=== PATIENT | female | born 1990 | race Caucasian/White ===

== ENCOUNTER → 2017-01-06 | Outpatient (CLI) | payer BC, SELFPAY ==
--- NOTE | 2017-01-06 17:34 | REP ---
OB ULTRASOUND COMPLETE, ANATOMY SCREEN: 01/06/2017. Clinical history: Supervision of . Normal first, second trimester anatomy screen. There is a single intrauterine gestation in variable position. The cervix is 4.9 cm long and closed. There is a posterior grade 0 placenta without previa or abruption. Amniotic fluid volume is visually normal. There appears to be draping of the cord over the neck without a definite nuchal cord. biometry: BPD 4.9 cm = 20 weeks 6 days HC 17.2 cm = 19 weeks 5 days AC 15.4 cm = 20 weeks 4 days FL 3 cm = 19 weeks 3 days HL 3 cm = 19 weeks 5 days Average ultrasound age by today's study 20 weeks. This would give an EDC 05/26/2017. By LMP she is 19 weeks 2 days with EDC 05/31/2017. Estimated weight 329 grams or 11 ounces, is 75th percentile for dating based on LMP. anatomic evaluation shows the heart rate 132 and regular. Cranial vault, lateral ventricles, choroid plexus, thalami, cavum septum pellucidum, midline falx, cerebellum and cisterna magna, profile and facial views, lungs, four-chamber heart view, ventricular outflow tracts, diaphragm, left-sided stomach bubble, three-vessel cord, cord insertion, kidneys and bladder, transverse and longitudinal views of the entire spine and the upper and lower extremities are seen and grossly unremarkable. Impression: 1. Single intrauterine gestation in variable position with a closed 4.9 cm long cervix, posterior grade 0 placenta without previa or abruption and visually normal amniotic fluid volume. The umbilical cord drapes over the neck. I cannot definitely confirm a nuchal cord. 2. Size and dates as described above. Average ultrasound by today's study 20 weeks, by LMP 19 weeks 2 days with estimated weight 75th percentile for LMP. Please see details above. 3. Heart rate 132 and regular. No visible anomalies. The anatomy screen should be considered complete. Signed by Sam Du MD 01/07/2017 08:51 A
== END ==
LOC: M RAD 15:52
PROVIDERS: ATTEND Specialist
DX: Z36 Encounter for antenatal screening of mother (principal)

== ENCOUNTER → 2017-03-01 | Outpatient (CLI) | payer BC ==
[2017-03-01 15:58] LABS: BASO % 0.2 % (0.0-1.0); EOS # 0.1 K/mm3 (0.0-0.50); EOS % 0.7 % (0.0-3.0); LARGE UNSTAINED CELL # 0.1 K/mm3 (0.0-0.4); LARGE UNSTAINED CELL % 0.9 % (0.0-4.0); LYMPH # 1.6 K/mm3 (1.5-6.5); LYMPH % 15.1 % (24.0-44.0); MEAN CORPUSCULAR HEMOGLOBIN 31.5 pg (27.0-33.0); MEAN CORPUSCULAR HGB CONC 33.6 g/dl (32.0-36.5); MEAN CORPUSCULAR VOLUME 93.8 fl (80.0-96.0); MONO # 0.4 K/mm3 (0.0-0.8); MONO % 4.5 % (0.0-5.0); NEUTROPHILS # 7.6 K/mm3 (1.8-7.7); NEUTROPHILS % 78.5 % (36.0-66.0); PLATELET COUNT, AUTOMATED 219 k/mm3 (150-450); RED CELL DISTRIBUTION WIDTH 12.7 % (11.5-14.5); WHITE BLOOD COUNT 9.7 K/mm3 (4.0-10.0)
== END ==
LOC: M LAB 14:25
PROVIDERS: ATTEND Specialist
DX: Z34.02 Encounter for supervision of normal first pregnancy, second trimester (principal)

== ENCOUNTER → 2017-05-03 | Outpatient (REF) | payer BC | LOC: M LAB REF 17:03 | PROVIDERS: ATTEND Advanced Practice Midwife | DX: Z34.83 Encounter for supervision of other normal pregnancy, third trimester (principal) ==

== ENCOUNTER 2017-05-27 02:20 | Inpatient (IN) | payer BC ==
[2017-05-27] VITALS (65 sets, daily range): BP systolic 114–184; BP diastolic 58–95
[2017-05-27] MEDS ORDERED: PENICILLIN G POTASSIUM IV 5 MU in D5W MINI-BAG PLUS 100 ML IV STA (02:49)
[2017-05-27] MEDS ORDERED: LR 1,000 ML IV SCH (02:49)
[2017-05-27] MEDS ORDERED: LACTATED RINGER'S 1000 ML IV STA (02:49)
[2017-05-27 03:06] LABS: MEAN CORPUSCULAR HEMOGLOBIN 30.3 pg (27.0-33.0); MEAN CORPUSCULAR HGB CONC 34.2 g/dl (32.0-36.5); MEAN CORPUSCULAR VOLUME 88.8 fl (80.0-96.0); RED CELL DISTRIBUTION WIDTH 16.3 % (11.5-14.5); WHITE BLOOD COUNT 14.5 K/mm3 (4.0-10.0)
[2017-05-27] MEDS ORDERED: FENTANYL 2MCG/ML ROPIVACAINE 0.2% IN 0.9% NACL 200ML IVBAG As Ordered ONE (03:07)
[2017-05-27 03:28] LABS: ALT/SGPT 95 U/L (12-78); AST/SGOT 69 U/L (15-37); BILIRUBIN,TOTAL 0.5 MG/DL (0.2-1.0); CREATININE FOR GFR 0.73 MG/DL (0.55-1.02); GLOMERULAR FILTRATION RATE > 60.0 (>60); URIC ACID 5.8 MG/DL (2.6-6.0)
[2017-05-27] MEDS ORDERED: OXYTOCIN DRIP 30 UNITS in APPROPRIATE DILUENT 1 EA IV SCH (04:33)
[2017-05-27] MEDS ORDERED: LIDOCAINE 1% MDV INJ 50 ML VIAL INFIL ONE (04:45)
[2017-05-27] MEDS ORDERED: RHOGAM 300 MCG (1500 IU) INJ (J2790) IM SCH (04:45)
[2017-05-27] MEDS ORDERED: DIBUCAINE 1% OINTMENT 30GM TOP PRN (04:45)
[2017-05-27] MEDS ORDERED: OXYTOCIN INJ 10 UNITS/ML VIAL (J2590) IM ONE (04:45)
[2017-05-27] MEDS ORDERED: MEASLES,MUMPS,RUBELLA VACCINE INJ (MMR-II) (90707) SC SCH (04:45)
[2017-05-27] MEDS ORDERED: TYLE325T5 PO (05:41)
[2017-05-27] MEDS ORDERED: PREN1TAB11 PO (05:41)
[2017-05-27] MEDS ORDERED: PENICILLIN G POTASSIUM IV 2.5 MU in D5W 100 ML IV SCH (07:00)
[2017-05-27] MEDS: PRENATAL VITAMINS CHEWABLE TABLET PO SCH (08:45)
[2017-05-27] MEDS: IBUPROFEN 800 MG TAB PO PRN ×2 (09:44→17:12)
[2017-05-27 12:15] LABS: MEAN CORPUSCULAR HEMOGLOBIN 30.6 pg (27.0-33.0); MEAN CORPUSCULAR VOLUME 89.8 fl (80.0-96.0); RED CELL DISTRIBUTION WIDTH 16.3 % (11.5-14.5); WHITE BLOOD COUNT 16.5 K/mm3 (4.0-10.0)
[2017-05-27] MEDS: LR 1,000 ML IV SCH ×4 (12:33→22:17)
[2017-05-27 12:50] LABS: ALT/SGPT 87 U/L (12-78); AST/SGOT 71 U/L (15-37); BILIRUBIN,TOTAL 0.4 MG/DL (0.2-1.0); CREATININE FOR GFR 0.65 MG/DL (0.55-1.02); GLOMERULAR FILTRATION RATE > 60.0 (>60); URIC ACID 5.7 MG/DL (2.6-6.0)
[2017-05-27] MEDS ORDERED: LABETALOL HCL 100 MG/20 ML VIAL IV ONE (13:00)
[2017-05-27] MEDS ORDERED: MAG Sulf (L&D) 4 GM/100 ML 4 GM in APPROPRIATE DILUENT 1 EA IV ONE (13:00)
[2017-05-27] MEDS ORDERED: CALCIUM GLUCONATE 1,000 MG in D5W MINI-BAG PLUS 100 ML IV PRN (13:00)
[2017-05-27] MEDS: MAG Sulf (OBGYN) 20GM/500ML 20,000 MG in APPROPRIATE DILUENT 1 EA IV SCH ×2 (13:28→23:03)
[2017-05-27 18:12] LABS: MEAN CORPUSCULAR HEMOGLOBIN 30.7 pg (27.0-33.0); MEAN CORPUSCULAR HGB CONC 33.9 g/dl (32.0-36.5); MEAN CORPUSCULAR VOLUME 90.5 fl (80.0-96.0); RED CELL DISTRIBUTION WIDTH 16.4 % (11.5-14.5); WHITE BLOOD COUNT 14.9 K/mm3 (4.0-10.0)
[2017-05-27 18:33] LABS: ALBUMIN 1.9 GM/DL (3.2-5.2); ALBUMIN/GLOBULIN RATIO 0.59 (1.00-1.93); ALKALINE PHOSPHATASE 208 U/L (45-117); ALT/SGPT 76 U/L (12-78); ANION GAP 8 MEQ/L (8-16); AST/SGOT 58 U/L (15-37); BILIRUBIN,TOTAL 0.2 MG/DL (0.2-1.0); BLOOD UREA NITROGEN 9 MG/DL (7-18); CARBON DIOXIDE LEVEL 26 MEQ/L (21-32); CHLORIDE LEVEL 106 MEQ/L (98-107); CREATININE FOR GFR 0.66 MG/DL (0.55-1.02); GLOMERULAR FILTRATION RATE > 60.0 (>60); GLUCOSE, FASTING 87 MG/DL (70-105); SODIUM LEVEL 140 MEQ/L (136-145); TOTAL PROTEIN 5.1 GM/DL (6.4-8.2); URIC ACID 5.8 MG/DL (2.6-6.0)
--- NOTE | 2017-05-27 22:17 | HPE ---
DATE OF ADMISSION: 05/27/2017 Falguni is a 26-year-old 2, para 0-0-1-0 at 39-3/7 weeks today with an estimated date of confinement (EDC) of 05/31/2017, based on first trimester ultrasound. She presents to labor and delivery today with report of onset of uncomfortable contractions at approximately 12:40. She does report some scant bloody show. She denies leakage of fluid and the fetus has been active. care was initiated at [facility] in the first trimester. course uncomplicated. OBSTETRICAL HISTORY: August 2016 spontaneous miscarriage. OBSTETRICAL LABORATORIES: Blood type is O positive, antibody screen negative, rubella immune, VDRL nonreactive. Urine culture no growth. Hepatitis B surface antigen negative, HIV negative. Hepatitis C antibody nonreactive. Gonorrhea and chlamydia negative. She did not have genetic serum screening labs drawn. Gestational diabetic screening negative and GBS positive. PAST MEDICAL HISTORY: 1. Asthma. 2. Childhood varicella. SURGERIES: 1. Breast augmentation. 2. Incision and drainage of a Bartholin cyst. FAMILY HISTORY: Diabetes. SOCIAL HISTORY: The patient is . Her is at bedside and supportive. She is a nonsmoker. No alcohol or drug use. Denies history of abuse physical, sexual and emotional and has a positive history for human papillomavirus (HPV). ALLERGIES: No known drug allergies. CURRENT MEDICATIONS: Include a vitamin. OBJECTIVE: Temperature 97.9, pulse 63, blood pressure is elevated at 184/94, 171/94. She is alert and oriented times three. She does appear distressed. She is moaning and crying with her contractions and very tense. heart rate is 125 with moderate variability, positive accelerations, no decelerations observed. Lizzie approximately every 3 minutes. Sterile vaginal exam: 7 cm dilated, 90% effaced, -2 station. Membranes are intact. Abdomen is gravid, cephalic presentation. Estimated weight approximately 8 pounds. ASSESSMENT: Intrauterine at 39-3/7 weeks gestation with heart rate category one, labor. PLAN: Admit the patient to labor and delivery. Out of bed ad moriah. Intravenous (IV) fluid bolus as the patient does desire an epidural. Labs as ordered including a pre-eclamptic profile. I do plan to start antibiotics for group B Streptococcus (GBS) prophylaxis and I anticipate continued labor progress and a spontaneous vaginal delivery.
--- NOTE | 2017-05-27 22:17 | DN ---
DATE OF SERVICE: 05/27/2017 Falguni is a 1, para 1-0-1-1 now, who was admitted to labor and delivery in active labor. She did have spontaneous rupture of membranes for a small amount of meconium-stained fluid at 0249. She progressed to full dilation at 0310, pushed to a normal spontaneous vaginal delivery of a live male infant in occiput anterior (OA) position with restitution to left occiput transverse (LOT) position at 0326. There was no nuchal cord. Shoulders delivered with gentle downward traction and the corpus immediately followed. The male was placed on the maternal abdomen crying and active, very vigorous. His mouth and nares were bulb suctioned. The cord was clamped times two once pulsations ceased and cut by the father of the baby. A spontaneous expulsion of an intact placenta with three-vessel cord by Ayala mechanism was at 0336. Uterine hemostasis achieved with intravenous (IV) Pitocin rapid infusion, Pitocin 10 units intramuscularly (IM) and uterine fundal massage. Estimated blood loss 400 mL. Perineum and vagina inspected. Noted to have a first-degree midline laceration, as well as bilateral labial abrasions. The midline laceration was infiltrated with 1% lidocaine and repaired with 3-0 Rapide in the usual fashion. male weighed 7 pounds 14 ounces, 3568 grams, scores 9 and 10. Mother plans to breastfeed her daughter and the family have named their son Marcos. At the close of delivery, lap counts, needle counts and instrument counts were correct and verified.
[2017-05-28] VITALS (32 sets, daily range): BP systolic 100–161; BP diastolic 59–99
[2017-05-28] MEDS: IBUPROFEN 800 MG TAB PO PRN ×3 (04:32→20:54)
[2017-05-28] MEDS: LR 1,000 ML IV SCH ×4 (05:00→21:00)
[2017-05-28 06:32] LABS: MEAN CORPUSCULAR HGB CONC 34.2 g/dl (32.0-36.5); MEAN CORPUSCULAR VOLUME 90.6 fl (80.0-96.0); RED CELL DISTRIBUTION WIDTH 16.6 % (11.5-14.5)
[2017-05-28 06:46] LABS: ALBUMIN 1.8 GM/DL (3.2-5.2); ALKALINE PHOSPHATASE 175 U/L (45-117); ALT/SGPT 64 U/L (12-78); ANION GAP 9 MEQ/L (8-16); AST/SGOT 45 U/L (15-37); BILIRUBIN,TOTAL 0.2 MG/DL (0.2-1.0); BLOOD UREA NITROGEN 8 MG/DL (7-18); CARBON DIOXIDE LEVEL 24 MEQ/L (21-32); CHLORIDE LEVEL 106 MEQ/L (98-107); CREATININE FOR GFR 0.51 MG/DL (0.55-1.02); GLOMERULAR FILTRATION RATE > 60.0 (>60); GLUCOSE, FASTING 78 MG/DL (70-105); SODIUM LEVEL 139 MEQ/L (136-145); TOTAL PROTEIN 5.4 GM/DL (6.4-8.2); URIC ACID 5.5 MG/DL (2.6-6.0)
[2017-05-28] MEDS: ACETAMINOPHEN 500 MG TAB PO PRN ×2 (07:53→20:58)
[2017-05-28] MEDS: PRENATAL VITAMINS CHEWABLE TABLET PO SCH (08:23)
[2017-05-28] MEDS: MAG Sulf (OBGYN) 20GM/500ML 20,000 MG in APPROPRIATE DILUENT 1 EA IV SCH ×2 (08:32→18:59)
[2017-05-28] MEDS: DOCUSATE SODIUM 100 MG CAP PO PRN ×2 (10:44→21:02)
[2017-05-28 11:58] LABS: MEAN CORPUSCULAR HEMOGLOBIN 30.9 pg (27.0-33.0); MEAN CORPUSCULAR HGB CONC 34.3 g/dl (32.0-36.5); MEAN CORPUSCULAR VOLUME 90.1 fl (80.0-96.0); RED CELL DISTRIBUTION WIDTH 16.8 % (11.5-14.5); WHITE BLOOD COUNT 12.9 K/mm3 (4.0-10.0)
[2017-05-28 12:28] LABS: ALBUMIN 1.8 GM/DL (3.2-5.2); ALBUMIN/GLOBULIN RATIO 0.56 (1.00-1.93); ALKALINE PHOSPHATASE 182 U/L (45-117); ALT/SGPT 64 U/L (12-78); ANION GAP 10 MEQ/L (8-16); AST/SGOT 45 U/L (15-37); BILIRUBIN,TOTAL 0.1 MG/DL (0.2-1.0); BLOOD UREA NITROGEN 8 MG/DL (7-18); CALCIUM LEVEL 6.8 MG/DL (8.5-10.1); CARBON DIOXIDE LEVEL 24 MEQ/L (21-32); CHLORIDE LEVEL 104 MEQ/L (98-107); CREATININE FOR GFR 0.49 MG/DL (0.55-1.02); GLOMERULAR FILTRATION RATE > 60.0 (>60); GLUCOSE, FASTING 84 MG/DL (70-105); SODIUM LEVEL 138 MEQ/L (136-145); URIC ACID 5.4 MG/DL (2.6-6.0)
[2017-05-28] MEDS: FAMOTIDINE 20 MG TAB PO SCH (20:59)
[2017-05-29] VITALS (8 sets, daily range): BP systolic 130–164; BP diastolic 75–102
[2017-05-29] MEDS: LR 1,000 ML IV SCH ×4 (00:43→19:38)
[2017-05-29] MEDS: MAG Sulf (OBGYN) 20GM/500ML 20,000 MG in APPROPRIATE DILUENT 1 EA IV SCH ×3 (00:43→19:38)
[2017-05-29] MEDS: IBUPROFEN 800 MG TAB PO PRN ×2 (05:40→17:23)
[2017-05-29] MEDS: PRENATAL VITAMINS CHEWABLE TABLET PO SCH (07:39)
[2017-05-29] MEDS: FAMOTIDINE 20 MG TAB PO SCH ×2 (09:00→20:09)
[2017-05-29] MEDS: NIFEdipine 30 MG XL TAB PO SCH (11:06)
[2017-05-29] MEDS: DOCUSATE SODIUM 100 MG CAP PO PRN (20:09)
[2017-05-30] MEDS: ACETAMINOPHEN 500 MG TAB PO PRN (01:39)
[2017-05-30 01:40] VITALS: BP 149/97
[2017-05-30] MEDS: IBUPROFEN 800 MG TAB PO PRN ×2 (01:40→09:57)
[2017-05-30 06:06] VITALS: BP 130/78
[2017-05-30 06:53] LABS: MEAN CORPUSCULAR HEMOGLOBIN 30.6 pg (27.0-33.0); MEAN CORPUSCULAR HGB CONC 32.8 g/dl (32.0-36.5); MEAN CORPUSCULAR VOLUME 93.3 fl (80.0-96.0); RED CELL DISTRIBUTION WIDTH 16.7 % (11.5-14.5); WHITE BLOOD COUNT 10.8 K/mm3 (4.0-10.0)
[2017-05-30 07:12] LABS: ALBUMIN 2.1 GM/DL (3.2-5.2); ALBUMIN/GLOBULIN RATIO 0.62 (1.00-1.93); ALKALINE PHOSPHATASE 188 U/L (45-117); ALT/SGPT 62 U/L (12-78); ANION GAP 9 MEQ/L (8-16); AST/SGOT 47 U/L (15-37); BILIRUBIN,TOTAL 0.2 MG/DL (0.2-1.0); BLOOD UREA NITROGEN 9 MG/DL (7-18); CALCIUM LEVEL 8.4 MG/DL (8.5-10.1); CARBON DIOXIDE LEVEL 24 MEQ/L (21-32); CHLORIDE LEVEL 102 MEQ/L (98-107); CREATININE FOR GFR 0.55 MG/DL (0.55-1.02); GLOMERULAR FILTRATION RATE > 60.0 (>60); GLUCOSE, FASTING 78 MG/DL (70-105); POTASSIUM SERUM 4.3 MEQ/L (3.5-5.1); SODIUM LEVEL 135 MEQ/L (136-145); TOTAL PROTEIN 5.5 GM/DL (6.4-8.2); URIC ACID 4.7 MG/DL (2.6-6.0)
[2017-05-30] MEDS ORDERED: NIFE30TA66 PO (07:31)
[2017-05-30] MEDS ORDERED: TYLE325T5 PO (07:49)
[2017-05-30] MEDS ORDERED: MOTR200T44 PO (07:49)
[2017-05-30] MEDS: PRENATAL VITAMINS CHEWABLE TABLET PO SCH (08:00)
[2017-05-30 08:01] VITALS: BP 130/78
[2017-05-30] MEDS: NIFEdipine 30 MG XL TAB PO SCH (08:01)
[2017-05-30] MEDS: FAMOTIDINE 20 MG TAB PO SCH (08:01)
[2017-05-30 10:11] VITALS: BP 140/91
== END 2017-05-30 10:45 | disposition home or self-care (01) | DRG 560 ==
LOC: M LDO 02:20 → M LDI 02:33 → M OBS 05-28 17:48
PROVIDERS: ADMIT Advanced Practice Midwife; ATTEND Advanced Practice Midwife
PROC: 10E0XZZ Delivery of Products of Conception, External Approach (ICD-10-PCS; principal; 2017-05-27)
PROC: 0HQ9XZZ Repair Perineum Skin, External Approach (ICD-10-PCS; 2017-05-27)
DX: O14.24 HELLP syndrome, complicating childbirth (principal); O62.3 Precipitate labor; O69.82X0 Labor and delivery complicated by other cord entanglement, without compression, not applicable or unspecified; O70.0 First degree perineal laceration during delivery; Z37.0 Single live birth; Z3A.38 38 weeks gestation of pregnancy

== ENCOUNTER → 2018-03-03 | Outpatient (REF) | payer BC | LOC: M LAB REF 17:11 | DX: Z12.4 Encounter for screening for malignant neoplasm of cervix (principal) | CPT/HCPCS: G0123 ==

== ENCOUNTER → 2018-08-31 | Outpatient (CLI) | payer BC ==
[2018-08-31 17:22] LABS: BASO % 0.3 % (0.0-1.0); EOS # 0.1 10^3/uL (0.0-0.50); EOS % 1.6 % (0.0-3.0); HEMATOCRIT 36.8 % (36.0-47.0); HEMOGLOBIN 12.6 g/dl (12.0-15.5); IMMATURE GRANULOCYTE % 0.3 % (0-3.0); LYMPH % 26.6 % (24.0-44.0); MEAN CORPUSCULAR HEMOGLOBIN 30.9 pg (27.0-33.0); MEAN CORPUSCULAR HGB CONC 34.2 g/dl (32.0-36.5); MEAN CORPUSCULAR VOLUME 90.2 fl (80.0-96.0); MONO # 0.5 10^3/uL (0.0-0.8); MONO % 6.8 % (0.0-5.0); NEUTROPHILS # 4.9 10^3/uL (1.8-7.7); NEUTROPHILS % 64.4 % (36.0-66.0); PLATELET COUNT, AUTOMATED 271 10^3/uL (150-450); RED BLOOD COUNT 4.08 10^6/uL (4.00-5.40); RED CELL DISTRIBUTION WIDTH 12.1 % (11.5-14.5); WHITE BLOOD COUNT 7.6 10^3/uL (4.0-10.0)
[2018-08-31 19:17] LABS: CHLAMYDIA DNA AMPLIFICATION NEGATIVE (NEGATIVE); GC DNA AMPLIFICATION NEGATIVE (NEGATIVE)
[2018-09-01 11:45] LABS: HBsAg Prenatal NEGATIVE (NEGATIVE); HIV 1&2 SCREEN CENTAUR NEGATIVE (NEGATIVE); RUBELLA IgG QUALITATIVE IMMUNE (IMMUNE)
[2018-09-01 11:45] LABS: HEPATITIS C VIRUS ABY INDEX < 0.0 INDEX (<0.8)
== END ==
LOC: M LAB 16:12
DX: Z34.81 Encounter for supervision of other normal pregnancy, first trimester (principal); Z3A.00 Weeks of gestation of pregnancy not specified
CPT/HCPCS: 86762

== ENCOUNTER → 2018-10-30 | Outpatient (CLI) | payer BC ==
[~2018-10-30] MED LIST: MOTR200T44 PO; NIFE30TA50 PO; PREN1TAB11 PO; TYLE325T5 PO
--- NOTE | 2018-10-31 04:12 | REP ---
Clinical: Anatomical evaluation. Comparison: None. Findings: Examination demonstrates a single live intrauterine in cephalic presentation. motion is identified by technologist. Placenta is noted anterior and grade zero without evidence for placenta previa or abruption. Amniotic fluid volume is normal. Cervix measures 4.1 cm in length and appears closed. No evidence for nuchal cord. Gestational age by LMP 17 weeks 4-day with FRANKLIN 04/05/2019 . Gestational age by current measurements 18 weeks 3 days with FRANKLIN 03/30/2019 . FHR equals 139 beats per minute. BPD 4.1 cm 18 weeks 3 days HC 15.4 cm 18 weeks 3 days AC 12.8 cm 18 weeks 3-day FL 2.7 cm 18 weeks 2 days HL 2.7 cm 18 weeks 3 day HC/AC ratio 1.21 Estimated weight 236 grams ( 77th percentile). Anatomical assessment demonstrates normal structures including cranium, cavum, cerebellum/posterior fossa, facial features, lungs, four-chamber heart/ventricular outflow tracts, diaphragm, stomach, cord insertion/three-vessel cord, bladder, spine, and extremities. Small bilateral choroid plexus cysts are identified. Mild bilateral renal pelviectasis within normal range. Impression: Single live intrauterine in cephalic presentation demonstrating appropriate interval growth. Anatomical findings as described above may warrant followup and evaluation. Electronically Signed by Robin Norwood MD 10/31/2018 04:03 A
== END ==
LOC: M RAD 17:06
PROVIDERS: ATTEND Specialist
DX: Z36.89 Encounter for other specified antenatal screening (principal); Z3A.18 18 weeks gestation of pregnancy

== ENCOUNTER → 2019-01-06 | Outpatient (CLI) | payer BC ==
[2019-01-06 18:34] LABS: BASO % 0.2 % (0.0-1.0); EOS # 0.1 10^3/uL (0.0-0.50); EOS % 0.9 % (0.0-3.0); HEMATOCRIT 35.3 % (36.0-47.0); HEMOGLOBIN 11.7 g/dl (12.0-15.5); LYMPH # 1.4 10^3/uL (1.5-4.5); LYMPH % 16.4 % (24.0-44.0); MEAN CORPUSCULAR HGB CONC 33.1 g/dl (32.0-36.5); MEAN CORPUSCULAR VOLUME 93.4 fl (80.0-96.0); MONO # 0.5 10^3/uL (0.0-0.8); MONO % 5.7 % (0.0-5.0); NEUTROPHILS # 6.5 10^3/uL (1.8-7.7); NEUTROPHILS % 75.5 % (36.0-66.0); PLATELET COUNT, AUTOMATED 253 10^3/uL (150-450); RED BLOOD COUNT 3.78 10^6/uL (4.00-5.40); WHITE BLOOD COUNT 8.6 10^3/uL (4.0-10.0)
== END ==
LOC: M WUC 13:39
PROVIDERS: ATTEND Specialist
DX: Z34.82 Encounter for supervision of other normal pregnancy, second trimester (principal)

== ENCOUNTER → 2019-01-31 | Outpatient (CLI) | payer BC | LOC: M LAB 13:48 | PROVIDERS: ATTEND Advanced Practice Midwife | DX: Z34.82 Encounter for supervision of other normal pregnancy, second trimester (principal) ==

== ENCOUNTER → 2019-03-05 | Outpatient (REF) | payer BC | LOC: M LAB REF 17:27 | PROVIDERS: ATTEND Specialist | DX: Z34.83 Encounter for supervision of other normal pregnancy, third trimester (principal); Z3A.00 Weeks of gestation of pregnancy not specified ==

== ENCOUNTER 2019-04-03 06:23 | Inpatient (IN) | payer BC ==
[2019-04-03] VITALS (25 sets, daily range): BP systolic 79–116; BP diastolic 50–73
[~2019-04-03] VITALS: Ht 174 cm; Wt 81.2 kg
[2019-04-03] MEDS ORDERED: TUMS500C PO (06:47)
[2019-04-03] MEDS ORDERED: LACTATED RINGER'S 1000 ML IV STA (07:12)
[2019-04-03] MEDS ORDERED: LR 1,000 ML IV SCH (07:12)
[2019-04-03] MEDS: LR 1,000 ML IV SCH ×2 (07:40→18:15)
[2019-04-03 08:02] LABS: HEMATOCRIT 35.3 % (36.0-47.0); HEMOGLOBIN 11.6 g/dl (12.0-15.5); MEAN CORPUSCULAR HEMOGLOBIN 29.4 pg (27.0-33.0); MEAN CORPUSCULAR HGB CONC 32.9 g/dl (32.0-36.5); MEAN CORPUSCULAR VOLUME 89.6 fl (80.0-96.0); PLATELET COUNT, AUTOMATED 217 10^3/uL (150-450); RED BLOOD COUNT 3.94 10^6/uL (4.00-5.40); WHITE BLOOD COUNT 9.2 10^3/uL (4.0-10.0)
--- NOTE | 2019-04-03 08:33 | NUR ---
L&D H&P HPI: 28 year old at 39+5 weeks estimated gestation. Expected date of confinement: 04/05/2019. dated by her LMP, which was consistent with a first trimester ultrasound. Presents today with frequent painful contractions for the past several hours. Denies vaginal bleeding, loss of fluid. Reports regular movement. course uncomplicated thus far. Her past was complicated by HELLP syndrome. labs: Blood type O+, antibody screen negative, rubella immune, VDRL nonreactive , hepatitis B surface antigen negative, HIV negative, hepatitis C antibody negative, GC/CT negative, aneuploidy/maternal serum screening: Patient did not do screening, 1 hour glucose challenge test: 90, GBS negative Vaccinations: Tdap. 02/01/2019 Radiology/OB US: no anomalies or placental abnormalities detected. History Past medical history: none Surgical history: Excision of Bartholin's cyst/marsupialization, breast augmentation Medications: vitamins Allergies: NKDA BILINGUAL TEACHER history: Remote history of HPV/dysplasia. No other STI OB history: G1, August 2016 SAB. G2, May 2017, 39+3 , 7 lbs. 14 oz. complicated by HELLP syndrome. 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 No tobacco, alcohol or drug use. Family history:. Schizophrenia-patient's uncle, father-depression. Ulcerative colitis. Pt's mother recently diagnosed with idiopathic pancytopenia. Objective Vitals: Normotensive, normal heart rate, afebrile Heart: Regular rate and rhythm. No murmurs, rubs or gallops. Lungs: Clear to auscultation bilaterally. No wheezes, crackles, rales or rhonchi. Abdomen: Uterine fundal height consistent with dates. No guarding or rebound tenderness. Extremities: No clubbing, cyanosis or edema. Normal deep tendon reflexes. Sterile vaginal exam: 3 cm, 80 %effacement, -3 station, cephalic, intact (checked around 0700 this AM) External monitoring: heart rate category 1 Tocodynamometer: contractions occurring every 2-4 minutes Assessment/Plan 28 year old at 39+5 weeks gestation. Diagnosis: Active labor at term. Reassuring and maternal status. -Admit to labor and delivery with routine labs and orders -External monitoring and tocodynamometer -Pediatrics and anesthesia consultations as needed. -Augment labor with Pitocin as needed Dr. Chad Perez, DO, FACOG
--- NOTE | 2019-04-03 09:29 | NUR ---
Progress Note Pt continuing to contract uncomfortably. Pain with each contraction. No VB/LOF. VSS,normotensive, afebrile SVE: 5cm/90%/-3, posterior, intact EFM: Cat I [place]: ctxs every 2-4 min A/P: Early active labor. Reassuring maternal and status. Considering epidural. -Repeat SVE in 2-4 hours or sooner PRN. Debra Perez DO
[2019-04-03] MEDS ORDERED: FENTANYL 2MCG/ML ROPIVACAINE 0.2% IN 0.9% NACL 100ML IVBAG As Ordered ONE (09:34)
[2019-04-03] MEDS ORDERED: LACTATED RINGER'S 1000 ML IV PRN (10:30)
[2019-04-03] MEDS ORDERED: diphenhydrAMINE INJ 50MG/ML VIAL (J1200) IV PRN (10:30)
[2019-04-03] MEDS ORDERED: EPIDURAL COMMENT XX SCH (10:30)
[2019-04-03] MEDS ORDERED: FENTANYL/ROPIVACAINE/NACL BAG 100 ML EPIDURAL SCH (10:30)
[2019-04-03] MEDS ORDERED: REFRIGERATOR IV KEYS XX PRN (10:30)
[2019-04-03] MEDS ORDERED: ePHEDrine SULFATE 25 MG/5 ML(5MG/ML) SYRINGE IV PRN (10:30)
[2019-04-03] MEDS ORDERED: ONDANSETRON 4MG/2ML VIAL (J2405) IV PRN ×2 (10:30→15:00)
[2019-04-03] MEDS ORDERED: NALOXONE INJ 0.4 MG/1 ML VIAL (J2310) IV PRN (10:30)
[2019-04-03] MEDS ORDERED: EPIDURAL/PCA KEYS XX PRN (10:30)
--- NOTE | 2019-04-03 13:07 | NUR ---
Progress Note Comfortable with epidural. No heavy VB or LOF. VSS,normotensive, afebrile SVE: 5cm/100%/-3, anterior, bloody show AROM, clear EFM: Cat I [place]: ctxs every 2-4 min A/P: Active labor. Reassuring maternal and status. -Repeat SVE in 2 hours or sooner PRN. Debra Perez DO
[2019-04-03] MEDS ORDERED: OXYTOCIN 30 UNITS IN 0.9% NaCl 500ML IV BAG (J2590) As Ordered ONE (14:32)
[2019-04-03] MEDS ORDERED: OXYTOCIN DRIP 30 UNITS in APPROPRIATE DILUENT 1 EA IV SCH (14:54)
--- NOTE | 2019-04-03 14:58 | NUR ---
Delivery note Spontaneous vaginal delivery Estimated gestational age at delivery: 39+5 weeks The active phase and second stage of labor progressed in normal fashion with epidural anesthesia. Patient did not receive Pitocin labor augmentation. Cat I FHR throughout labor. The head delivered left occiput anterior and restituted left occiput transverse. No nuchal cord was noted. The anterior shoulder delivered with gentle downward guidance and the remainder of the body delivered with ease. Cord clamping was delayed for approximately 1 minute after delivery. After doubly clamping the cord, I guided the FOB to cut the cord. The was placed on the patient's chest for immediate bonding. [place] data: Apgars 9 and 9. weight 3900 grams 8 pounds, 10 ounces. Time of delivery: 1432. Sex: Male named Marcelino. The third stage of labor was actively managed with a bolus of IV Pitocin (30 units in 500 mL of normal saline). The placenta delivered completely intact with no missing cotyledons at 1437. A three-vessel cord with a central insertion was noted. After delivery of the placenta, the uterine fundus was approximately 2 cm below the umbilicus and firm. IV Pitocin was continued to maintain uterine tone. A normal, low level of uterine bleeding was noted. The cervix, vagina, vulva and perineum were inspected for lacerations. A first degree laceration was noted. This was repaired with 3-0 Vicryl in typical fashio n. Excellent hemostasis was noted. Estimated blood loss: 200ml. All sponges, needles, and instruments were accounted for per NEWS ANCHOR department protocol. Chad Perez D.O., F.A.C.O.G.
[2019-04-03] MEDS ORDERED: PROMETHAZINE 25 MG TAB PO PRN (15:00)
[2019-04-03] MEDS ORDERED: DOCUSATE SODIUM 100 MG CAP PO PRN (15:00)
[2019-04-03] MEDS ORDERED: ACETAMINOPHEN TAB 650MG DOSE (2X325MG) PO PRN (15:00)
[2019-04-03] MEDS ORDERED: DIBUCAINE 1% OINTMENT 30GM TOP PRN (15:00)
[2019-04-03] MEDS ORDERED: MEASLES,MUMPS,RUBELLA VACCINE INJ (MMR-II) (90707) SC SCH (15:00)
[2019-04-03] MEDS ORDERED: IBUPROFEN 600 MG TAB PO PRN (15:00)
[2019-04-03] MEDS ORDERED: RHOGAM 300 MCG (1500 IU) INJ (J2790) IM SCH (15:00)
[2019-04-03] MEDS ORDERED: METHYLERGONOVINE MALEATE 0.2 MG TAB PO PRN (15:00)
[2019-04-03] MEDS ORDERED: ACETAMINOPHEN 500 MG TAB PO PRN (15:00)
[2019-04-03] MEDS ORDERED: SLF 3 ML SYR IV PRN (18:15)
[2019-04-03] MEDS: IBUPROFEN 800 MG TAB PO PRN (19:47)
[2019-04-03] MEDS: SLF 3 ML SYR IV SCH (20:32)
[2019-04-04] MEDS: IBUPROFEN 800 MG TAB PO PRN ×2 (05:03→13:06)
[2019-04-04] MEDS: SLF 3 ML SYR IV SCH ×2 (05:03→13:07)
[2019-04-04 05:57] VITALS: BP 115/71
[2019-04-04] MEDS ORDERED: PRENATAL VITAMINS CHEWABLE TABLET PO SCH (09:00)
[2019-04-04] MEDS ORDERED: ACET-683 PO (09:41)
[2019-04-04] MEDS ORDERED: IBUP80TA PO (09:41)
== END 2019-04-04 15:40 | disposition home or self-care (01) | DRG 560 ==
LOC: M LDO 06:23 → M LDI 07:12 → M OBS 17:47
PROVIDERS: ADMIT Advanced Practice Midwife; ATTEND Advanced Practice Midwife
PROC: 10E0XZZ Delivery of Products of Conception, External Approach (ICD-10-PCS; principal; 2019-04-03)
PROC: 0HQ9XZZ Repair Perineum Skin, External Approach (ICD-10-PCS; 2019-04-03)
DX: O70.0 First degree perineal laceration during delivery (principal); Z37.0 Single live birth; Z3A.39 39 weeks gestation of pregnancy

== ENCOUNTER → 2020-04-09 | Outpatient (REF) | payer BC ==
[~2020-04-09] MED LIST changes: +ACET-683 PO; +IBUP80TA PO; +TUMS500C PO
[2020-04-09 17:24] LABS: ALBUMIN 3.8 GM/DL (3.2-5.2); ALT/SGPT 20 U/L (12-78); BILIRUBIN,TOTAL 0.4 MG/DL (0.2-1.0); BLOOD UREA NITROGEN 13 MG/DL (7-18); CALCIUM LEVEL 8.7 MG/DL (8.5-10.1); CARBON DIOXIDE LEVEL 29 MEQ/L (21-32); CHLORIDE LEVEL 106 MEQ/L (98-107); CREATININE FOR GFR 0.62 MG/DL (0.55-1.30); FOLATE 22.1 NG/ML (>5.4); GLOMERULAR FILTRATION RATE > 60.0 (>60); GLUCOSE, FASTING 74 MG/DL (70-100); POTASSIUM SERUM 3.9 MEQ/L (3.5-5.1); SODIUM LEVEL 138 MEQ/L (136-145); TOTAL PROTEIN 7.2 GM/DL (6.4-8.2); VITAMIN B12 LEVEL 1003 PG/ML (247-911)
[2020-04-09 17:29] LABS: HEMATOCRIT 39.5 % (36.0-47.0); HEMOGLOBIN 13.4 g/dl (12.0-15.5); MEAN CORPUSCULAR HEMOGLOBIN 31.5 pg (27.0-33.0); MEAN CORPUSCULAR HGB CONC 33.9 g/dl (32.0-36.5); MEAN CORPUSCULAR VOLUME 92.9 fl (80.0-96.0); PLATELET COUNT, AUTOMATED 279 10^3/uL (150-450); RED BLOOD COUNT 4.25 10^6/uL (4.00-5.40); WHITE BLOOD COUNT 6.8 10^3/uL (4.0-10.0)
== END ==
LOC: M SFHCADAM 13:43
PROVIDERS: ATTEND Family Medicine
DX: R53.83 Other fatigue (principal); L65.9 Nonscarring hair loss, unspecified

== ENCOUNTER → 2020-05-01 | Outpatient (CLI) | payer BC ==
--- NOTE | 2020-05-01 14:49 | REP ---
Clinical: Right lower extremity calf pain . Technique: Bourgeois scale and color Doppler evaluation of the right lower extremity using linear high frequency transducer. Findings: Ultrasound examination of the right lower extremity deep venous structures from the common femoral vein to the popliteal vein demonstrates normal compressibility flow and wave patterns in response to respiration and augmentation. There is no evidence for deep venous thrombosis. Impression: No evidence for deep venous thrombosis.
== END ==
LOC: M WHC 12:01
PROVIDERS: ATTEND Family Medicine
DX: M79.661 Pain in right lower leg (principal)

== ENCOUNTER → 2020-06-13 | Outpatient (CLI) | payer BC ==
--- NOTE | 2020-08-04 07:23 | REP ---
PELVIC MRI WITHOUT CONTRAST: HISTORY: Pain in the left hip. This report was delayed due to prolonged network disruptions at this facility. [id number] COMPARISON: None available. TECHNIQUE: Axial, coronal and sagittal imaging planes are utilized. T1 and T2- weighted scans are included with and without fat saturation. FINDINGS: No uterine or significant ovarian lesion is seen. A small quantity of physiologic fluid is seen. The visualized small and large bowel loops are unremarkable. No inguinal or pelvic wall defect is seen. There is no evidence of hip joint effusion. Periarticular soft tissues are unremarkable about the hips. Cortical and medullary bone signal intensity is normal in the proximal femurs bilaterally. There is no evidence of avascular necrosis. There is both T2 hyperintense edema and low T1, low T2-weighted sclerotic change on either side of the left sacroiliac joint consistent with unilateral left- sided sacroiliitis. There is no significant effusion or adjacent fluid collection. The right SI joint is unremarkable. The skeletal muscle shows normal T1 and T2-weighted signal intensity and contour. The pelvic floor structures are unremarkable. No other abnormality. IMPRESSION: Findings consistent with unilateral left-sided sacroiliitis with apparent sclerotic change and marrow edema on either side of the SI joint. MTDD
== END ==
LOC: M RAD 07:35
PROVIDERS: ATTEND Orthopaedic Surgery Sports Medicine
DX: M25.552 Pain in left hip (principal)

== ENCOUNTER → 2020-08-21 | Outpatient (CLI) | payer BC ==
[2020-08-21 14:13] LABS: BASO % 0.3 % (0.0-1.0); EOS # 0.1 10^3/uL (0.0-0.5); HEMATOCRIT 36.8 % (36.0-47.0); HEMOGLOBIN 12.6 g/dl (12.0-15.5); LYMPH # 1.3 10^3/uL (1.5-5.0); LYMPH % 21.9 % (24.0-44.0); MEAN CORPUSCULAR HEMOGLOBIN 31.3 pg (27.0-33.0); MEAN CORPUSCULAR HGB CONC 34.2 g/dl (32.0-36.5); MEAN CORPUSCULAR VOLUME 91.5 fl (80.0-96.0); MONO # 0.5 10^3/uL (0.0-0.8); MONO % 8.8 % (0.0-5.0); NEUTROPHILS # 4.1 10^3/uL (1.5-8.5); NEUTROPHILS % 66.5 % (36.0-66.0); PLATELET COUNT, AUTOMATED 257 10^3/uL (150-450); RED BLOOD COUNT 4.02 10^6/uL (4.00-5.40); WHITE BLOOD COUNT 6.1 10^3/uL (4.0-10.0)
[2020-08-21 15:29] LABS: HEPATITIS C VIRUS ABY INDEX 0.1 INDEX (<0.8); HIV 1&2 SCREEN CENTAUR NEGATIVE (NEGATIVE)
== END ==
LOC: M PLALAB 11:57
PROVIDERS: ATTEND Specialist
DX: O09.521 Supervision of elderly multigravida, first trimester (principal); Z3A.00 Weeks of gestation of pregnancy not specified

== ENCOUNTER → 2020-10-13 | Outpatient (CLI) | payer BC ==
--- NOTE | 2020-10-13 21:08 | REP ---
INDICATION: ANATOMY COMPARISON: None. TECHNIQUE: Transabdominal obstetrical ultrasound with color Doppler evaluation. FINDINGS: Examination demonstrates a single live intrauterine in transverse (head to maternal right) presentation. motion is identified by technologist. Placenta is noted posterior and grade 0 without evidence for placenta previa or abruption. Amniotic fluid volume is normal. Cervix measures 3.7 cm in length and appears closed.. Gestational age by LMP 19 weeks 3 days with FRANKLIN 03/06/2021. Gestational age by current measurements 19 weeks 2 days with FRANKLIN 03/07/2021. FHR equals 142 beats per minute. BPD: 4.4 cm 19 weeks 3 days HC: 16.6 cm 19 weeks 2 days AC: 14.0 cm 19 weeks 3 days FL: 3.0 cm 19 weeks 2 days HL: 2.9 cm 19 weeks 2 days HC/AC: 1.18 Estimated weight 287 grams (43rdpercentile). Anatomical assessment demonstrates normal structures including cranium, choroid plexus, cavum, cerebellum/posterior fossa, diaphragm, stomach, cord insertion/three-vessel cord, kidneys/bladder, spine, and extremities. IMPRESSION: 1. Single live intrauterine in transverse lie demonstrating appropriate interval growth. 2. While no gross abnormalities are identified, limited evaluation of the facial features and heart/ventricular outflow tracts are due to positioning and may warrant re-evaluation. <Electronically signed by Robin Norwood > 10/13/20 [id number]
== END ==
LOC: M WHC 14:13
PROVIDERS: ATTEND Obstetrics & Gynecology
DX: O09.292 Supervision of pregnancy with other poor reproductive or obstetric history, second trimester (principal); Z3A.19 19 weeks gestation of pregnancy; O32.2XX0 Maternal care for transverse and oblique lie, not applicable or unspecified

== ENCOUNTER → 2020-10-24 | Outpatient (CLI) | payer BC ==
--- NOTE | 2020-10-24 12:57 | REP ---
INDICATION: F/U ANATOMY. COMPARISON: On the prior obstetric ultrasound dated 10/13/2020 the facial profile, upper lip, four-chamber view of the heart and the cardiac right left ventricular outflow tracts were suboptimally demonstrated. The study today is for follow up of these anatomic structures. TECHNIQUE: Multiple ultrasonographic images of the fetus. FINDINGS: There is a single intrauterine gestation of position is not recorded by the account director, however, fetus appears to be in a transverse lie upon viewing the images. The placenta is posterior as previously. The since sonography for does not indicate if there is placenta previa, however no preview is identified on the prior study. I did do not identify previa on the images presented. Cervix measures 3.4 cm in length. heart rate is 146 beats per minute. The composite ultrasound gestational age by the study today is 21 weeks 3 days. The FRANKLIN is 03/03/2021. Gestational age by the 1st ultrasound is 21 weeks 0 days with an FRANKLIN of 03/06/2021. Gestational age by LMP is 21 weeks 0 days with an FRANKLIN of 03/06/2021. On the study today the facial profile, upper lip, four-chamber view of the heart and cardiac right left ventricular outflow tracts are satisfactorily demonstrated and are unremarkable. Again identified today and unremarkable of the cranium, cavum septum pellucidum, cardiac rhythm, diaphragm, stomach, abdominal wall, right and left kidneys, bladder, right left upper extremities, right and left lower extremities and 3 vessel cord. Suboptimally demonstrated today are the falx, intracranial ventricles, choroid plexus, cerebellum, cisterna magna in spine. However, the structures were adequately visualized previously and were unremarkable. Therefore, there are no anomalies. IMPRESSION: There are no anomalies as described above. <Electronically signed by Kev Cerda > 10/24/20 [id number]
== END ==
LOC: M WHC 08:40
PROVIDERS: ATTEND Specialist
DX: Z34.82 Encounter for supervision of other normal pregnancy, second trimester (principal); Z3A.21 21 weeks gestation of pregnancy

== ENCOUNTER → 2020-12-04 | Outpatient (REF) | payer BC ==
[2020-12-04 13:48] LABS: HEMOGLOBIN 12.1 g/dl (12.0-15.5); MEAN CORPUSCULAR HGB CONC 32.7 g/dl (32.0-36.5); MEAN CORPUSCULAR VOLUME 94.9 fl (80.0-96.0); PLATELET COUNT, AUTOMATED 232 10^3/uL (150-450); WHITE BLOOD COUNT 8.3 10^3/uL (4.0-10.0)
== END ==
LOC: M PLALAB 08:57
PROVIDERS: ATTEND Specialist
DX: Z34.82 Encounter for supervision of other normal pregnancy, second trimester (principal); Z3A.00 Weeks of gestation of pregnancy not specified

== ENCOUNTER → 2021-02-10 | Outpatient (REF) | payer BC | LOC: M SFHCWAGY 13:27 | PROVIDERS: ATTEND Advanced Practice Midwife | DX: Z36.89 Encounter for other specified antenatal screening (principal); Z3A.36 36 weeks gestation of pregnancy ==

== ENCOUNTER 2021-02-27 23:47 | Inpatient (IN) | payer BC ==
[~2021-02-27] VITALS: Ht 175.3 cm; Wt 82.5 kg
[2021-02-28] VITALS (26 sets, daily range): BP systolic 87–159; BP diastolic 47–118
[2021-02-28] MEDS ORDERED: LACTATED RINGER'S 1000 ML IV STA (00:22)
[2021-02-28] MEDS ORDERED: LIDOCAINE 1% MDV 20ML VIAL INFIL PRN (00:25)
[2021-02-28] MEDS ORDERED: OXYTOCIN DRIP 30 UNITS in IV 1 EA IV PRN (00:25)
[2021-02-28] MEDS ORDERED: LR 1,000 ML IV SCH (00:25)
[2021-02-28] MEDS ORDERED: METHYLERGONOVINE MALEATE 0.2 MG/ML VIAL (J2210) IM PRN (00:25)
--- NOTE | 2021-02-28 00:38 | HPEPDOC ---
Obstetrical History & Physical General Date of Admission 02/28/2021 History of Present Illness Chief Complaint: Contractions, term Age: 30 : 4 Term: 2 Pre-term: 0 Abortions: 1 Livin Care Care: Good Care Dating Final EDC: Mar 07, 2021 Final EDC by: LMP EGA at Admission: 39 Antepartum Course Admission Weight (lbs.): 180.6 Past Medical History Past Obstetrical History #1: Past Obstetrical History: Primgravida (2017) Type of Delivery: Spontaneous Vaginal Del. Sex of : Male (7#14) Complications: No Past Obstetrical History #2: Past Obstetrical History: Multigravida (2018) Type of Delivery: Spontaneous Vaginal Del. Sex of Infant: Male (8#) Complications: No DIRECTOR OF SCIENTIFIC RESEARCH History: Spontaneous , Human papillomavirus(HPV) Past Medical History Surgical History: Breast augmentation, Other (bartholins cyst) Family History Significant Family History: Diabetes Social History Marital Status: Family situation: Spouse/partner home Psychosocial History: No pertinent psych hx * Smoker: former Smoker Alcohol: Denies Drugs: denies Abuse Violence Screening Have you been hit/kicked/slapp: No Have you been sexually assault: No Allergies Coded Allergies: No Known Allergies (Unverified , 05/27/17) Medications Scheduled PRN Acetaminophen (Acetaminophen) 500 Mg Tablet, 1,000 MG PO Q6HP PRN for PAIN SCALE 6-10 Calcium Carbonate (Tums) 200 Mg Tab.chew, 1,000 MG PO Q4HP PRN for HEARTBURN Ibuprofen (Ibuprofen) 800 Mg Tablet, 800 MG PO Q8HP PRN for PAIN SCALE 6-10 Miscellaneous Medications Vit No.124/Iron/Folic ( Vitamin Tablet) 1 Tab Tab, 1 TAB PO Physical Examination Physical Examination GENERAL: Alert and oriented times three. BREAST: . ABDOMEN: Gravid and non-tender to touch. FETUS: Is vertex (VTX) by sterile vaginal examination (SVE), fetus is vertex (VTX) by Lan. EFW 8# HEART RATE: Regular rate and rhythm. LUNGS: Clear to auscultation (CTA). EXTREMITIES: No edema. No clonus. Deep tendon reflexes (DTRs) + 2. Pertinent Laboratoy Data Blood Type: O+ RBC Antibody Screen: Negative HIV: Negative Hepatitis B: Negative Hepatitis C: Negative Rapid Plasma Reagin: Nonreactive Rubella: Immune Chlamydia/Gonorrhea: Negative Group B Streptococcus: Negative Glucose Tolerance Test: 74 Diag/Inter Therapy Panorama low risk Anatomy Ultrasound Ultrasound Date: Oct 13, 2020 Placenta Location: Posterior Normal Anatomy: Yes Placenta Previa: No Estimated Weight (grams): 287 (43%) Other Ultrasounds 10/24/2021 Normal f/u anatomy Steroid Therapy Steroid Therapy: No Vaginal Examination Dilation: 3 cm Effacement: 80% Station: -1 Cervical Consistency: Medium Cervical Position: Posterior Presentation: Cephalic presentation Assessment Heart Rate (FHR): 130 Variability: Moderate Accelerations: Positive Decelerations: None Tocometer Contractions: Yes Frequency: regular, every 3-7 min. Duration: less than 60 seconds Strength: palpated as moderate Assessment/Plan Assessment Falguni is a 30-year-old (G)4 para (P)2-0-1-2 at 39+0 weeks by first trimester ultrasound. Presents to Labor and Delivery (L&D) with complaints of contractions through the day, steady and stronger for the past hour. Denies LOF, bleeding. Reports good movement. Plan Admit and orient. Data Modeling Architect and consent. Diet: clear liquids. Group B Streptococcus (GBS) negative. Labs and intravenous (IV) per unit protocol. Counseled on Pitocin and induction of labor (IOL). Lactated Ringers (LR): Bolus 500 mL, then at 125 mL/hr. Plans epidural Anticipate normal spontaneous delivery (). C-S as appropriate. Roxana Smith CNM Feb 28, 2021 00:31
[2021-02-28] MEDS ORDERED: ONDANSETRON 4MG/2ML VIAL IV ONE (00:40)
[2021-02-28 00:46] LABS: HEMATOCRIT 34.5 % (36.0-47.0); HEMOGLOBIN 11.5 g/dl (12.0-15.5); MEAN CORPUSCULAR HEMOGLOBIN 29.8 pg (27.0-33.0); MEAN CORPUSCULAR HGB CONC 33.3 g/dl (32.0-36.5); MEAN CORPUSCULAR VOLUME 89.4 fl (80.0-96.0); PLATELET COUNT, AUTOMATED 191 10^3/uL (150-450); RED BLOOD COUNT 3.86 10^6/uL (4.00-5.40); WHITE BLOOD COUNT 9.1 10^3/uL (4.0-10.0)
[2021-02-28] MEDS ORDERED: FENTANYL 2MCG/ML ROPIVACAINE 0.2% IN 0.9% NACL 100ML IVBAG As Ordered ONE (01:41)
[2021-02-28] MEDS ORDERED: diphenhydrAMINE 50MG/ML VIAL (J1200) IV PRN (02:10)
[2021-02-28] MEDS ORDERED: ePHEDrine SULFATE 25 MG/5 ML(5MG/ML) SYRINGE IV PRN (02:10)
[2021-02-28] MEDS ORDERED: EPIDURAL COMMENT XX SCH (02:10)
[2021-02-28] MEDS ORDERED: EPIDURAL/PCA KEYS XX PRN (02:10)
[2021-02-28] MEDS ORDERED: FENTANYL/ROPIVACAINE/NACL BAG 100 ML EPIDURAL SCH (02:10)
[2021-02-28] MEDS ORDERED: LACTATED RINGER'S 1000 ML IV PRN (02:10)
[2021-02-28] MEDS ORDERED: REFRIGERATOR IV KEYS XX PRN (02:10)
[2021-02-28] MEDS ORDERED: NALOXONE INJ 0.4MG/1ML VIAL (J2310 PER 1MG) IV PRN (02:10)
[2021-02-28] MEDS ORDERED: ONDANSETRON 4MG/2ML VIAL IV PRN (02:10)
[2021-02-28] MEDS ORDERED: DIBUCAINE 1% OINTMENT 30GM TOP PRN (04:50)
[2021-02-28] MEDS ORDERED: RHOGAM 300 MCG (1500 IU) INJ (J2790) IM SCH (04:50)
[2021-02-28] MEDS ORDERED: MEASLES,MUMPS,RUBELLA VACCINE INJ (MMR-II) (90707) SC SCH (04:50)
[2021-02-28] MEDS ORDERED: DOCUSATE SODIUM 100MG CAPSULE PO PRN (04:50)
[2021-02-28] MEDS ORDERED: ACETAMINOPHEN TAB 650MG DOSE (2X325MG) PO PRN (04:50)
[2021-02-28] MEDS ORDERED: MOM 30ML SUSPENSION UDC PO PRN (04:50)
[2021-02-28] MEDS ORDERED: ANUSOL HC CREAM 30GM TOP PRN (04:50)
--- NOTE | 2021-02-28 04:59 | DNPDOC ---
[facility] Delivery Note Delivery Note DATE OF DELIVERY: 02/28/2021 PREDELIVERY DIAGNOSIS: 39-1/7 weeks' gestation and labor. POST DELIVERY DIAGNOSIS: Delivered. PROCEDURE: Spontaneous vaginal delivery PROVIDER: Roxana Smith CNM ANESTHESIA: Epidural. ESTIMATED BLOOD LOSS: 200 mL. FINDINGS: 8 pound 13 ounce, 4010gm male , Score 8/9, no nuchal cord. DELIVERY SUMMARY: Patient is a 30-year-old 4 now para 3-0-1-3 who was admitted to labor and delivery for active labor. She utilized an epidural for labor coping. Fully dilated 0328. Spontaneous rupture of membranes with pa rticulate meconium at 0335. Viable male delivered KAYLAN-ROP, @ 0349. Shoulders delivered with ease. Bulb suctioned jairo and nasopharynx prior to delivery. Spontaneous respirations, transitioned on maternal abdomen. Cord doubly clamped and cut by FOB under my direction once pulsations ceased. Apgars 8/9. Placenta eduardo, intact with 3v cord @ 0351. Fundus firmed with massage and IV bolus premixed pitocin. Uterine bogginess persisted, methergine 0.2mg IM given. EBL 200ml. Small posterior fourchette abrasion noted, hemostatic, not repaired. Sponge, sharp and instrument count correct. Parents are naming their son Remington OgRoxana sepulveda CNM Feb 28, 2021 04:59
[2021-02-28] MEDS ORDERED: METHYLERGONOVINE MALEATE 0.2 MG TAB PO SCH ×2 (07:20→10:30)
[2021-02-28] MEDS: PRENATAL VITAMINS CHEWABLE TABLET PO SCH (07:55)
[2021-02-28] MEDS: IBUPROFEN 800 MG TAB PO PRN ×2 (07:55→16:33)
[2021-02-28] MEDS: METHYLERGONOVINE MALEATE 0.2 MG TAB PO SCH ×3 (08:03→19:33)
[2021-02-28] MEDS: ACETAMINOPHEN 500 MG TAB PO PRN ×2 (12:03→19:36)
[2021-02-28] MEDS: IBUPROFEN 600MG TAB PO PRN (22:41)
[2021-03-01] MEDS: ACETAMINOPHEN 500 MG TAB PO PRN (01:38)
[2021-03-01] MEDS: METHYLERGONOVINE MALEATE 0.2 MG TAB PO SCH (01:38)
[2021-03-01 05:49] VITALS: BP 96/55
[2021-03-01] MEDS: IBUPROFEN 600MG TAB PO PRN (06:22)
[2021-03-01] MEDS ORDERED: METHYLERGONOVINE MALEATE 0.2 MG TAB PO PRN (07:25)
[2021-03-01] MEDS: PRENATAL VITAMINS CHEWABLE TABLET PO SCH (08:10)
== END 2021-03-01 11:05 | disposition home or self-care (01) | DRG 560 ==
LOC: M LDO 23:47 → M LDI 02-28 00:23 → M OBS 02-28 06:35
PROVIDERS: ADMIT Advanced Practice Midwife; ATTEND Advanced Practice Midwife
PROC: 10E0XZZ Delivery of Products of Conception, External Approach (ICD-10-PCS; principal; 2021-02-28)
DX: O80 Encounter for full-term uncomplicated delivery (principal); Z37.0 Single live birth; Z3A.39 39 weeks gestation of pregnancy; Z87.891 Personal history of nicotine dependence

== ENCOUNTER → 2021-05-06 | Outpatient (REF) | payer BC | LOC: M SFHCWAGY 13:53 | PROVIDERS: ATTEND Advanced Practice Midwife | DX: Z12.4 Encounter for screening for malignant neoplasm of cervix (principal); Z01.419 Encounter for gynecological examination (general) (routine) without abnormal findings ==